=== PATIENT | male | born 2005 | race Caucasian/White ===

== ENCOUNTER 2025-02-26 17:12 | Emergency (ER) | payer MEDICAID, SELFPAY ==
--- NOTE | ~2025-02-26 | XR_ITS ---
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 Congenital shortening of the 5th middle and distal phalanges. There is focal soft tissue swelling of the 3rd digit, may reflect a component of cellulitis. There appears to be incomplete segmentation of the soft tissue webspaces between the 3rd and 4th and 4th and 5th digits. 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 Correlation clinically is advised. No acute fracture. No significant loss of joint space or osteophytes. No erosions. No radiopaque foreign body. IMPRESSION: Congenital anomalies with cellulitis described. This document has been electronically signed by: Hernan Amaya MD on 02/26/2025 18:51:45
[2025-02-26 17:53] VITALS: BP 150/75; PULSE 82; RESP 16; TEMP 36.7; O2SAT 98; BMI 28.8
--- NOTE | 2025-02-26 17:56 | ED.UPPEXIN ---
HPI - Extremity Injury (Upper) General Chief Complaint: General Medical Stated Complaint: Finger swelling/?Infection Time Seen by Provider: 02/26/25 20:50 Related Data Allergies Allergy/AdvReac Type Severity Reaction Status Date / Time No Known Allergies Allergy Verified 02/27/25 11:52 [facility] Social History Social History Advance Directives: No Advance Directives Information Provided: No Do you have a plan to hurt others: No Plan Physical Exam Vital Signs: Vital Signs: Last Vital Signs Temp 98.0 F 02/26/25 17:53 Pulse 82 02/26/25 17:53 Resp 16 02/26/25 17:53 BP 150/75 H 02/26/25 17:53 Pulse Ox 98 02/26/25 17:53 O2 Del Method Room Air 02/26/25 17:53 BMI result Body Mass Index 28.8 Course Course Course Narrative: This is an RME: Additional HPI, ROS, PE not included below will be deferred to primary provider. RME assessment and note performed by: Tali Garcia PA-C This is a 19-year-old male who presents emergency department with concerns of increased pain to his left hand. Patient with notable congenital deformity which he has had a . He states that there was a lump on his hand that he tried to remove with a string. He reports that he has had increased pain and swelling. Plan: Labs, x-ray, further ER evaluation needed. Reevaluation(s) Reevaluation #1: Patient left without completing treatment. Medical Decision Making Lab Data 02/26/25 19:20 02/26/25 19:20 Labs: Lab Results 02/26/25 Range/Units 19:20 WBC 7.2 (4.8-10.8) X10*3/uL RBC 4.64 (4.60-5.80) X10*6/uL Hgb 13.7 L (14.0-18.0) g/dl Hct 38.9 L (42.0-52.0) % MCV 83.8 (80.0-98.0) fL MCH 29.5 (27.0-33.0) pg MCHC 35.2 (31.0-36.0) g/dl RDW 13.3 (11.0-16.0) % Plt Count 157 L (160-400) X10*3/uL MPV 12.5 H (9.4-12.4) fL Immature Gran % (Auto) 0.4 (0.0-0.4) % Neut % (Auto) 56.4 (45-73) % Lymph % (Auto) 34.0 (20-40) % [place] % (Auto) 5.7 (2-11) % Eos % (Auto) 2.5 (0-4) % Baso % (Auto) 1.0 (0-2) % Lymph # (Auto) 2.5 (1.2-4.9) X10*3/uL [place] # (Auto) 0.4 (0.1-1.2) X10*3/uL Eos # (Auto) 0.2 (0.0-0.4) X10*3/uL Baso # (Auto) 0.1 (0.0-0.2) X10*3/uL Abs Immat Gran (auto) 0.03 (0.00-0.03) X10*3/uL Absolute Neuts (auto) 4.1 (2.0-8.3) x10*3/uL Absolute Nucleated RBC 0.000 (0.0-0.012) X10*3/uL Nucleated RBC % (auto) 0.0 (0.0-0.2) /100WBC ESR 7 (0-15) MM/HR Sodium 142 (135-145) mmol/L Potassium 3.6 (3.3-5.1) mmol/L Chloride 106 (96-108) mmol/L Carbon Dioxide 26 (22-29) mmol/L Anion Gap 14 (12-20) BUN 10 (9-16) mg/dL Creatinine 0.70 (0.5-1.4) mg/dL Estim Creat Clear Calc 172.2 Estimated GFR > 60 Random Glucose 111 (60-115) mg/dL Calcium 9.6 (8.4-10.2) mg/dL Total Bilirubin 0.2 (0.0-1.0) mg/dL Direct Bilirubin < 0.2 (0.0-0.5) mg/dL AST 78 H (5-37) U/L ALT 220 H (0-40) U/L Alkaline Phosphatase 159 H (39-117) U/L C-Reactive Protein < 0.10 (< or = 0.50) mg/dL Total Protein 7.7 (6.5-8.0) g/dL Albumin 4.9 (3.5-5.0) g/dL Discharge Plan 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
[2025-02-26 19:24] LABS: MANUAL DIFF FLAG NO
[2025-02-26 19:38] LABS: Hematocrit 38.9 % (42.0-52.0); Hemoglobin 13.7 g/dl (14.0-18.0); Imm Gran Abs Auto 0.03 X10*3/uL (0.00-0.03); Imm Gran Pct Auto 0.4 % (0.0-0.4); Lymphocytes Absolute Auto 2.5 X10*3/uL (1.2-4.9); Mean Corpuscular HGB Conc 35.2 g/dl (31.0-36.0); Mean Corpuscular Hemoglobin 29.5 pg (27.0-33.0); Mean Corpuscular Volume 83.8 fL (80.0-98.0); NRBC Abs Auto 0.000 X10*3/uL (0.0-0.012); NRBC Pct Auto 0.0 /100WBC (0.0-0.2); Platelet Count 157 X10*3/uL (160-400); Red Blood Count 4.64 X10*6/uL (4.60-5.80); White Blood Count 7.2 X10*3/uL (4.8-10.8)
[2025-02-26 19:39] LABS: Alanine Aminotransferase 220 U/L (0-40); Albumin Level 4.9 g/dL (3.5-5.0); Alkaline Phosphatase 159 U/L (39-117); Anion Gap 14 (12-20); Aspartate Amino Transferase 78 U/L (5-37); Blood Urea Nitrogen 10 mg/dL (9-16); Calcium 9.6 mg/dL (8.4-10.2); Carbon Dioxide 26 mmol/L (22-29); Chloride 106 mmol/L (96-108); Creatinine Clr Calc Pharmacy 172.2; Estimated Glomerular Filt Rate > 60; Potassium 3.6 mmol/L (3.3-5.1); Sodium 142 mmol/L (135-145); Total Protein 7.7 g/dL (6.5-8.0)
== END 2025-02-26 21:34 | disposition left against medical advice (07) ==
PROVIDERS: Physician Assistant Medical; Emergency Provider Emergency Medicine
DX: Q74.0 Other congenital malformations of upper limb(s), including shoulder girdle (principal); L03.012 Cellulitis of left finger; R60.0 Localized edema; Z53.29 Procedure and treatment not carried out because of patient's decision for other reasons
CPT/HCPCS: 36415; 73130; 80048; 80076; 85025; 85652; 86140; 99281; 99283

== ENCOUNTER → 2025-02-26 17:55 | Outpatient (BNV) | payer SELFPAY | PROVIDERS: Visit Provider Radiology Diagnostic Radiology | DX: Q68.1 Congenital deformity of finger(s) and hand (principal); L03.114 Cellulitis of left upper limb | CPT/HCPCS: 73130 ==

== ENCOUNTER 2025-02-27 11:23 | Emergency (ER) | payer MEDICAID, OTHER, SELFPAY ==
[2025-02-27 11:45] VITALS: BP 156/71; PULSE 89; RESP 16; TEMP 36.3; O2SAT 98; BMI 28.2
--- NOTE | 2025-02-27 11:45 | ED.UPPEXIN ---
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 He states that a string accidentally wrapped around his left 4th digit while he was in bed. States this was wrapped for approximately 5 hours before he was able to remove the string. Reports swelling/pain to the area. No sensation disturbances. He presents today requesting to have his digit removed . Related Data Home Medications ?Medication ?Instructions ?Recorded ?Confirmed No Known Home Meds 03/13/25 Allergies Allergy/AdvReac Type Severity Reaction Status Date / Time No Known Allergies Allergy Verified 03/13/25 08:44 Review of Systems Review of Systems: Yes all other systems are reviewed and are negative PMFSH Past Medical History Attestation statement: The following information was validated with the patient. 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 Skin: Warm, dry, intact. No rashes or lesions. Head: Normocephalic, atraumatic. EENT: Hearing is intact b/l. Conjunctiva clear. PERRLA. EOM intact. Moist mucous membranes.? Cardiac: Chest wall symmetric. RRR Lungs: Normal respiratory effort without accessory muscle use Ext: +see photo of left hand below. +syndactyly of the left 3rd/4th/5th digits. 3rd finger is missing the distal phalanx, and the 4th finger is missing the middle phalanx. +soft tissue mass attached to the distal dorsal top of the 4th finger, no bone involvement. approx 1.5cm in diameter, fairly mobile about the base Neuro: AOx3. Normal speech. Course Course Course Narrative: This is an RME: Additional HPI, ROS, PE not included below will be deferred to primary provider. RME assessment and note performed by: Tali Garcia PA-C This is a 19-year-old male who presents emergency department due to increased pain to his left hand. Patient with notable congenital deformity which he has had a . He states that there was a lump on his hand that he tried to remove with a string. He reports that he has had increased pain and swelling. He was seen here yesterday where labs were performed, as well as an x-ray however left without completing treatment. Upon review of his labs, he does have elevated liver transaminases, inflammatory markers within normal limits yesterday. No leukocytosis. Plan: Repeat labs Reevaluation(s) Reevaluation #1: Cbc without leukocytosis. No left shift. No anemia, h&h stable. Chemistry without acute electrolyte abnormality requiring intervention. No elliot. Transaminitis. No priors to compare to, other than labs obtained yesterday. Inflammatory markers are wnl. 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 shortening more so in the 4th digit. Congenital shortening of the 5th? middle and distal phalanges. There is focal soft tissue swelling of the? 3rd digit, may reflect a component of cellulitis. There appears to be? incomplete segmentation of the soft tissue webspaces between the 3rd and? 4th and 4th and 5th digits. 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 and syndactyly. Correlation clinically is advised. No acute fracture. No significant loss of joint space or osteophytes. No erosions. No radiopaque foreign body. IMPRESSION: Congenital anomalies with cellulitis described. Clinically, he does not have cellulitis. There is soft tissue swelling apparently where the string was constricting his soft tissue. he states his hand looks baseline, is unable to provide me with any photos of what the hand looked like prior to the string becoming constricted around his digit. During examination, patient states he wants the digit removed. He is declining any pain medication at this time, although endorsing 10/10 pain. He states ?are you going to remove it or not?, becoming increasingly agitated. There is no sign of tissue necrosis, NV compromise or threat to limb. He needs to follow up with hand surgery, outpatient, for elective amputation of the digit. I have provided him with a referral. Advised to call to establish care.? Medical Decision Making Medical Decision Making [facility] Narrative: 19-year-old male presents to the ED today for evaluation of left digit pain since yesterday. he is hypertensive, vitals are otherwise wnl. on exam, there is syndactyly of the left 3rd/4th/5th digits. 3rd finger is missing the distal phalanx, and the 4th finger is missing the middle phalanx. +soft tissue mass attached to the distal dorsal top of the 4th finger, no bone involvement. approx 1.5cm in diameter, fairly mobile about the base Plan to review labs/imaging. Differential Diagnosis Differential Diagnoses: The differential diagnosis associated with the presentation includes as above. Admission/Observation not indicated. Lab Data [facility] Lab Attestation statement: I reviewed the patient's lab results. as above. 02/27/25 12:24 02/27/25 12:25 Labs: Lab Results 02/27/25 02/27/25 Range/Units 12:24 12:25 WBC 6.2 (4.8-10.8) X10*3/uL RBC 4.94 (4.60-5.80) X10*6/uL Hgb 14.5 (14.0-18.0) g/dl Hct 41.2 L (42.0-52.0) % MCV 83.4 (80.0-98.0) fL MCH 29.4 (27.0-33.0) pg MCHC 35.2 (31.0-36.0) g/dl RDW 13.6 (11.0-16.0) % Plt Count 164 (160-400) X10*3/uL MPV 12.6 H (9.4-12.4) fL Immature Gran % (Auto) 0.6 H (0.0-0.4) % Neut % (Auto) 59.6 (45-73) % Lymph % (Auto) 29.3 (20-40) % [place] % (Auto) 6.8 (2-11) % Eos % (Auto) 2.7 (0-4) % Baso % (Auto) 1.0 (0-2) % Lymph # (Auto) 1.8 (1.2-4.9) X10*3/uL [place] # (Auto) 0.4 (0.1-1.2) X10*3/uL Eos # (Auto) 0.2 (0.0-0.4) X10*3/uL Baso # (Auto) 0.1 (0.0-0.2) X10*3/uL Abs Immat Gran (auto) 0.04 H (0.00-0.03) X10*3/uL Absolute Neuts (auto) 3.7 (2.0-8.3) x10*3/uL Absolute Nucleated RBC 0.000 (0.0-0.012) X10*3/uL Nucleated RBC % (auto) 0.0 (0.0-0.2) /100WBC ESR 4 (0-15) MM/HR Sodium 141 (135-145) mmol/L Potassium 4.1 (3.3-5.1) mmol/L Chloride 104 (96-108) mmol/L Carbon Dioxide 29 (22-29) mmol/L Anion Gap 12 (12-20) BUN 11 (9-16) mg/dL Creatinine 0.84 (0.5-1.4) mg/dL Estim Creat Clear Calc 142.2 Estimated GFR > 60 Random Glucose 110 (60-115) mg/dL Calcium 9.8 (8.4-10.2) mg/dL Total Bilirubin 0.5 (0.0-1.0) mg/dL Direct Bilirubin 0.2 (0.0-0.5) mg/dL AST 120 H (5-37) U/L ALT 256 H (0-40) U/L Alkaline Phosphatase 156 H (39-117) U/L C-Reactive Protein 0.11 (< or = 0.50) mg/dL Total Protein 8.0 (6.5-8.0) g/dL Albumin 5.1 H (3.5-5.0) g/dL Independent Interpretation I performed an independent interpretation of an: Plain X-Ray Interpretation: xr left hand without acute fracture Radiology Impression Discussion of test interpretation with radiology: I have reviewed the radiologist's reading. 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 shortening more so in the 4th digit. Congenital shortening of the 5th? middle and distal phalanges. There is focal soft tissue swelling of the? 3rd digit, may reflect a component of cellulitis. There appears to be? incomplete segmentation of the soft tissue webspaces between the 3rd and? 4th and 4th and 5th digits. 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 and syndactyly. Correlation clinically is advised. No acute fracture. No significant loss of joint space or osteophytes. No erosions. No radiopaque foreign body. IMPRESSION: Congenital anomalies with cellulitis described. 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 You state that this is unchanged from your congenital abnormality and are requesting that the area be removed. This is not something that we perform in the ED. I am referring you to our hand surgeon, Dr. Lopez, who may be able to discuss surgical options with you. You may take tylenol/motrin at home as needed. Return with any new or worsening symptoms. In the case of an emergency call 911. Prescriptions: No Action No Known Home Meds Referrals: Physician,None [Primary Care Provider, Medical] Monica Lopez MD [Physician, Hand Surgery] Interventions: ED Discharge Assessment Last Done: 02/27/25 15:31 Discharge Date/Time: 02/27/25 15:32 Print Language: Palauan
[2025-02-27 12:30] LABS: MANUAL DIFF FLAG NO
[2025-02-27 12:32] LABS: Hematocrit 41.2 % (42.0-52.0); Hemoglobin 14.5 g/dl (14.0-18.0); Imm Gran Abs Auto 0.04 X10*3/uL (0.00-0.03); Imm Gran Pct Auto 0.6 % (0.0-0.4); Lymphocytes Absolute Auto 1.8 X10*3/uL (1.2-4.9); Mean Corpuscular HGB Conc 35.2 g/dl (31.0-36.0); Mean Corpuscular Hemoglobin 29.4 pg (27.0-33.0); Mean Corpuscular Volume 83.4 fL (80.0-98.0); NRBC Abs Auto 0.000 X10*3/uL (0.0-0.012); NRBC Pct Auto 0.0 /100WBC (0.0-0.2); Platelet Count 164 X10*3/uL (160-400); Red Blood Count 4.94 X10*6/uL (4.60-5.80); White Blood Count 6.2 X10*3/uL (4.8-10.8)
[2025-02-27 12:45] LABS: Alanine Aminotransferase 256 U/L (0-40); Albumin Level 5.1 g/dL (3.5-5.0); Alkaline Phosphatase 156 U/L (39-117); Anion Gap 12 (12-20); Aspartate Amino Transferase 120 U/L (5-37); Blood Urea Nitrogen 11 mg/dL (9-16); Calcium 9.8 mg/dL (8.4-10.2); Carbon Dioxide 29 mmol/L (22-29); Chloride 104 mmol/L (96-108); Creatinine Clr Calc Pharmacy 142.2; Estimated Glomerular Filt Rate > 60; Potassium 4.1 mmol/L (3.3-5.1); Sodium 141 mmol/L (135-145); Total Protein 8.0 g/dL (6.5-8.0)
[2025-02-27 14:11] VITALS: BP 123/78; PULSE 87; RESP 16; O2SAT 99
[2025-02-27 15:31] VITALS: BP 123/78; PULSE 87; RESP 16; TEMP 36.6; O2SAT 99
== END 2025-02-27 15:32 | disposition home or self-care (01) ==
PROVIDERS: Physician Assistant Medical; Emergency Provider Emergency Medicine
DX: M20.002 Unspecified deformity of left finger(s) (principal); M79.645 Pain in left finger(s)
CPT/HCPCS: 36415; 80048; 80076; 85025; 85652; 86140; 99283

== ENCOUNTER 2025-03-13 08:35 | Outpatient (AMB) | payer SELFPAY ==
[2025-03-13 08:42] VITALS: BMI 29.6
--- NOTE | 2025-03-13 08:42 | MHC.OFFVIS ---
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 States on 02/26/25 a string accidentally wrapped around his fourth digit while he was in bed. States it was wrapped for about 5 hours. Experienced swelling and pain, but did not lose sensation. He was seen at [facility] ED on 02/26/25 where labs were performed, as well as an x-ray however patient left without completing treatment. As per ED notes, labs were done and showed elevated liver transaminases, inflammatory markers within normal limits. He was referred to be evaluated with hand surgeon Dr. Lopez. Today patient states he has no pain or dicomfort. 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 He says on 02/26/25 he had a loose string from his shirt that wrapped around his ring finger for ~5 hours. He denies losing any sensation. He was seen in the ED but left without treatment. He presents today denies any pain or swelling in his ring finger. He also says his sensation is normal. He says when he went to the ED he had a swollen lump on his ring finger, which developed after removing the string from his finger. He complains of a soft tissue mass on the dorsal distal aspect of his left ring finger that he would like to have removed. He has congenital defects of his bilateral hands. Syndactyly of the left middle, ring, and small fingers, and syndactyly of the right index & middle fingers. He says he cut the tissue between the middle & ring fingers of his right hand in the past, just distal to the PIP joint, and would have done the same to his left hand if he was able to. 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 Review of Systems Const All systems reviewed & are unremarkable except as noted in HPI and below Physical Exam Vital Signs: BMI result Body Mass Index 29.6 Const General: cooperative, healthy appearing and no acute distress Orientation/consciousness: patient oriented x3 HEENT Head: Yes normocephalic and Yes atraumatic Eyes EOM: EOMs intact bilaterally Resp Effort & Inspection: normal respiratory effort and able to speak in complete sentences Cardio Jugular venous distension: no JVD Skin General skin exam: turgor normal Rashes: no rashes Neuro General: patient oriented x3 Extrem Other: Evaluation of Left Upper Extremity: The patient is alert, oriented, and in no acute distress Neuro: Median, Ulnar, Radial nerves motor and sensory intact and sensation is normal to the tips of all digits Vascular: Cap refill brisk ROM: General: No Ecchymosis. No Erythema or evidence of infection. He has syndactyly of the left middle, ring, and small fingers. The middle finger is missing the distal phalanx, and the ring finger is missing the middle phalanx. The index finger is independent There is a mass attached to the distal dorsal top of the ring finger. This appears to involve skin and soft tissue but no bone, ~1.5cm in diameter, fairly mobile about the base. This appears to be a spherical soft tissue portion of his ring finger that had a constriction band around it. Syndactyly of the right index & middle fingers, with attenuation of these digits. There is also shortening of the ring finger The congenital hand deformities on both hands could have been caused by an amniotic band syndrome. He denies having similar issues in his feet or elsewhere. Radiographs: 3 views of the left hand from 02/26/25 were reviewed by me today in clinic. They show syndactyly of the middle, ring, and small fingers. The middle finger is missing the distal phalanx, and the ring finger is missing the middle phalanx. 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 Left ring finger mass Likely secondary to amniotic band constriction Measuring ~1.5cm in diameter I educated him about this condition I discussed operative and non-operative treatment options The patient would like to proceed with surgery The risks and benefits of operative treatment were discussed with the patient and the patient wishes to proceed with surgery. These risks include, but are not limited to risk of damage to blood vessels, nerves, tendons, infection, recurrence, incomplete relief of preoperative symptoms, persistent pain, possible need for further surgery and the risks associated with regional blocks and anesthesia. The plan is to take the patient to the operating room sometime in the next few weeks for the following procedures: 1. Left ring finger partial amputation, under local anesthesia All of the preoperative paperwork including the consent was reviewed today. All the patient's questions were answered. The patient understands that they will be contacted by our oral surgery physician soon to schedule this procedure He denies Diabetes, blood thinners, asthma, heart, lung, kidney issues 2. Left hand syndactyly Of the middle, ring, and small fingers. The middle finger is missing the distal phalanx, and the ring finger is missing the middle phalanx. The index finger is independent. Most likely secondary to amniotic band syndrome 3. Right hand Syndactyly Of the index & middle fingers, with attenuation of these digits. There is also shortening of the ring finger. Most likely secondary to amniotic band syndrome I educated him about this condition I discussed possible referral to a hand surgeon who more commonly treats these congenital hand abnormalities. This may be somewhat difficult, as he has the type of [facility] it will pay the hospital but apparently not the physicians who care for him. I am still putting him on the OR schedule. Please note that greater than 40 minutes was spent with this patient going over the history, evaluating the patient and radiographs, formulating possible treatment options, discussing them with the patient, and documenting the visit. Scribed for Monica Lopez MD by Paul Crisostomo, medical transcription editor, on 03/13/25 at 9:15 AM, EST. 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
== END 2025-03-13 09:38 | disposition home or self-care (01) ==
LOC: HO.HOS 08:35
PROVIDERS: Visit Provider Orthopaedic Surgery
DX: Q74.0 Other congenital malformations of upper limb(s), including shoulder girdle (principal); Q70.9 Syndactyly, unspecified
CPT/HCPCS: 99204

== ENCOUNTER → 2025-03-13 08:35 | Outpatient (BNVA) | payer MEDICAID, OTHER, SELFPAY | PROVIDERS: Visit Provider Orthopaedic Surgery | DX: Q74.0 Other congenital malformations of upper limb(s), including shoulder girdle (principal) | CPT/HCPCS: 99202 ==

== ENCOUNTER 2025-04-15 09:48 | Day surgery (SDC) | payer MEDICAID, OTHER, SELFPAY ==
--- NOTE | 2025-04-15 09:54 | MHC.SHP ---
Pre-Procedural Eval Section A - 24 Hr Update-Section A only Date of Service: 04/15/25 The patient is an INPATIENT: No Changes since office visit: No Cold of Flu in the past 2 weeks, No New Medical Problems, No Changes in Medication and No Patient answered all questions The patient has been examined within 24 hours of the surgical procedure. The History & Physical has been completed within 30 days and I have reviewed it.: Yes Section B - Complete if H&P > 30 days Chief Complaint: Other congenital malformations of upper limb(s), l Allergies: Allergies Allergy/AdvReac Type Severity Reaction Status Date / Time No Known Allergies Allergy Verified 03/13/25 08:44 Exam Exam Comment: Patient with brachy syndactyly of the left hand, possibly from amniotic band syndrome. Patient with nonfunctional distal aspect of the left ring finger that is adversely affecting use of the hand. We will perform a partial amputation of the left ring finger to remove this appendage. He also has a distal syndactyly the separation of the digit more proximally, and then a more proximal syndactyly. We are going to also perform a separation of the syndactyly at the distal aspect between the ring and middle fingers under local anesthesia at the same time. Plan I have reviewed the history and physical and performed a pertinent physical examination on my patient. No changes have occurred unless specified. Assessment and plan: 1. Left hand for brachy syndactyly, with non function of the distal aspect of the ring finger adversely affecting hand function and a small bridge of distal syndactyly. Patient with brachy syndactyly of the left hand, possibly from amniotic band syndrome.? Patient with nonfunctional distal aspect of the left ring finger that is adversely affecting use of the hand.? We will perform a partial amputation of the left ring finger to remove this appendage.? He also has a distal syndactyly the separation of the digit more proximally, and then a more proximal syndactyly.? We are going to also perform a separation of the syndactyly at the distal aspect between the ring and middle fingers under local anesthesia at the same time. The risks and benefits of operative treatment were discussed with the patient and the patient wishes to proceed with surgery. These risks include, but are not limited to risk of damage to blood vessels, nerves, tendons, infection, recurrence, incomplete relief of preoperative symptoms, persistent pain, possible need for further surgery and the risks associated with regional blocks and anesthesia. The plan is to take the patient to the operating room today for the following procedures: 1. Left ring finger partial amputation 2. Partial Separation of syndactyly between the distal aspect of the ring and middle fingers All of the preoperative paperwork including the consent was filled out today. All the patient's questions were answered. Time Spent With Patient Time: Total time managing care of this patient today ____ minutes.
--- NOTE | 2025-04-15 09:55 | W.PM.OPN ---
Operative Note Operative Note Date of Service: 04/15/25 Narrative: Operative Note Preop diagnosis: 1. 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 Left ring finger partial amputation of distal part of digit affected by constriction band 2. Partial takedown of the syndactyly between the left ring finger of the left middle finger, and repair of skin defects Surgeon: Monica Lopez MD Elevator Constructor Hydraulic: None Anesthesia: digital block using 1% lidocaine with epinephrine Findings: Left ring finger nonfunctional aspect of distal aspect of the digits secondary to amniotic band syndrome . Distal area of syndactyly measuring approximately 1 cm in length separate it from proximal area of syndactyly by a proximally 2 cm. Improve active motion of the left middle finger following release of the distal syndactyly, and removal of the nonfunctional distal aspect of the ring finger. 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 . The risks and benefits of operative treatment including but not limited to risk of damage to blood vessels, nerves, tendons, infection, persistent pain, persistent symptoms, recurrence or possible need for additional surgery were discussed with the patient and the patient wishes to proceed with surgery. Procedure: Once consent was obtained a digital block was performed in the preop area using a combination of 1% lidocaine with epinephrine. The patient was then brought back to the operating suite and placed on the operative table in supine position. The left upper extremity was prepped and draped in a standard surgical fashion. Once assured that we had a good block, I made a circumferential incision in the area of the amniotic band at the base of the pedunculated portion of the distal aspect of the left ring finger. I then this distal portion from the patient and was placed on the back table to be sent for histopathology. The opening from the stalk was only perhaps 4 mm in diameter. This allowed improved visualization of the distal syndactyly region, which measured approximately 1 cm in length. I then turned my attention to take down of the distal aspect of the syndactyly between the left middle and ring fingers. I began the incision dorsally through the skin to the subcutaneous tissues and extended this incision circumferentially around the syndactyly area to the volar aspect of the finger. The deeper syndactyly tissue was then also incised using a 15. Blade. This then allowed separation of the middle and ring fingers from the PIP joint distally. With the wounds on either side of the syndactyly measured about 1 cm in length by perhaps 8 mm in width. He had significantly improved active range of motion of the left middle finger following release of this portion of the syndactyly. Once satisfied with left ring finger partial amputation and takedown of the distal syndactyly between the left ring and middle fingers the wounds were copiously irrigated with normal saline and hemostasis was obtained with a brief period of local pressure. The skin edges were reapproximated with some 5.0 nylon suture material and a sterile dressing was applied. The patient appears to have tolerated the procedure well and with no complications. All digits were well vascularized at the conclusion of the case.
[2025-04-15 11:27] VITALS: BP 128/75; PULSE 80; RESP 16; TEMP 36.4; O2SAT 99; BMI 30.7
[2025-04-15 13:34] VITALS: BP 135/94; PULSE 86; RESP 16; TEMP 36.3; O2SAT 100
== END 2025-04-15 13:53 | disposition home or self-care (01) ==
PROVIDERS: Visit Provider Orthopaedic Surgery
PROC: (CPT 26951; principal; 2025-04-15 12:10)
DX: Q70.9 Syndactyly, unspecified (principal)
CPT/HCPCS: 26951; 26560; 88305; 88311; J0165; J2003

== ENCOUNTER → 2025-04-15 09:48 | Outpatient (BNV) | payer MEDICAID, SELFPAY | PROVIDERS: Visit Provider Orthopaedic Surgery | DX: S68.125A Partial traumatic metacarpophalangeal amputation of left ring finger, initial encounter (principal); Q70.12 Webbed fingers, left hand | CPT/HCPCS: 26560; 26951 ==

== ENCOUNTER 2025-04-24 07:36 | Outpatient (REF) | payer MEDICAID, OTHER, SELFPAY ==
--- NOTE | ~2025-04-24 | XR_ITS ---
EXAMINATION: XR HAND, LEFT CLINICAL INFORMATION: M79.642 - Pain in left hand COMPARISON: X-ray 02/26/2025 TECHNIQUE: PA, lateral, and oblique views of the left hand. FINDINGS: Third digit: Proximal and middle phalanx is present. There is a small ossification distally, could represent a attenuated distal phalanx, which is not clearly visualized on the prior study. No gross destructive changes are seen. Soft tissue swelling present, which could represent cellulitis. No subcutaneous emphysema is seen. 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 The remainder the bones, no acute fracture or dislocation. Sclerosis in the distal third of the scaphoid, unchanged. No significant joint space loss osteophytes. No radiopaque foreign body. XR/XR hand LT min 3V IMPRESSION: Third digit: Soft tissue swelling, which could represent cellulitis. No soft tissue emphysema or radiopaque foreign body seen. Small ossification distal to the third middle phalanx, could represent an attenuated distal phalanx, of indeterminate etiology. No gross destructive changes seen.. Clinically correlate. Electronically signed by: Keith Samuel MD 04/24/2025 10:45 AM JAKE
== END 2025-04-24 07:37 | disposition home or self-care (01) ==
LOC: HO.HOSX 07:36
PROVIDERS: Visit Provider Orthopaedic Surgery
DX: M79.642 Pain in left hand (principal); Q74.0 Other congenital malformations of upper limb(s), including shoulder girdle; D21.12 Benign neoplasm of connective and other soft tissue of left upper limb, including shoulder
CPT/HCPCS: 73130; 99212

== ENCOUNTER 2025-04-24 09:30 | Outpatient (AMB) | payer MEDICAID, SELFPAY ==
[2025-04-24 09:46] VITALS: BMI 31.6
--- NOTE | 2025-04-24 09:46 | A.OFFVIS_ITS ---
Vital Signs 04/24/25 09:46 Height 5 ft 4 in Weight 184 lb BMI 31.6 Intake Visit Reasons: PO LT RF partial amp 04/15/25 AR Intake Note: Sohail 19 yr old left hand dominant male presents today for his P/O visit for his left right finger partial amputation. Dressing removed in office. States he has no pain, numbness or tingling. Allergies No Known Allergies Allergy (Verified 04/24/25 09:52) HPI HPI PO LT RF partial amp 04/15/25 AR: Details: Sohail is a 19 year old left hand dominant Sinhala speaking man who returns S/P left ring finger mass excision & partial takedown of the syndactyly between the left ring finger of the left middle finger, and repair of skin defects, DOS: 04/15/25 He says he is doing well and he is happy with the improved use of his middle finger. 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 Syndactyly of the left middle, ring, and small fingers, and syndactyly of the right index & middle fingers. He says he cut the tissue between the middle & ring fingers of his right hand in the past, just distal to the PIP joint, and would have done the same to his left hand if he was able to. 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 Review of Systems Const All systems reviewed & are unremarkable except as noted in HPI and below Physical Exam Vital Signs: BMI result Body Mass Index 31.6 Const General: cooperative, healthy appearing and no acute distress Orientation/consciousness: patient oriented x3 HEENT Head: Yes normocephalic and Yes atraumatic Eyes EOM: EOMs intact bilaterally Resp Effort & Inspection: normal respiratory effort and able to speak in complete sentences Cardio Jugular venous distension: no JVD Skin General skin exam: turgor normal Rashes: no rashes Neuro General: patient oriented x3 Extrem Other: The patient was alert oriented and in no acute distress The incisions are healing well with no erythema drainage or evidence of infection. Sutures removed and Steri-Strips applied He has syndactyly of the left middle, ring, and small fingers. The middle finger is missing the distal phalanx, and the ring finger is missing the middle phalanx. The index finger is independent Syndactyly of the right index & middle fingers, with attenuation of these digits. There is also shortening of the ring finger The congenital hand deformities on both hands could have been caused by an amniotic band syndrome. He denies having similar issues in his feet or elsewhere. Flexion and extension similar to before surgery. More independence of the left middle finger with a separation of the middle finger from the distal aspect of the ring finger. Again he still has a syndactyly proximal to the PIP joint Sensation is intact Cap refill is brisk Pathology 04/15/25 Diagnosis Labeled left partial ring finger : -Polypoid portion of benign skin and underlying soft tissue with features suggesting soft fibroma. -No bone or nail present. 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 Left ring finger Fibroma, S/P partial amputation of distal part of digit affected by constriction band 2. Left hand syndactyly Of the middle, ring, and small fingers. The middle finger is missing the distal phalanx, and the ring finger is missing the middle phalanx. The index finger is independent. Most likely secondary to amniotic band syndrome S/P Partial takedown of the syndactyly between the left ring finger of the left middle finger, and repair of skin defects DOS: 04/15/25 The patient appears to be doing well post-operatively I educated him about the post-operative course I explained the signs and symptoms of infection, if the patient develops any new or worsening erythema, drainage, pain, or warmth they should contact the clinic or attend the ED. I discussed activity modifications, he is to lift nothing heavier than a cellphone for the next 2 weeks. They should also avoid any heavy impact activities, falls, or sports activities for the next 4 weeks He will perform gentle ROM exercises at home He should avoid any underwater activities for the next 5 days He should gently massage about the incision site to reduce the risk of hypersensitivity He was given a note to return to work with a 5lb weight limit, keeping his LUE clean. He can return to full duty in 2 weeks. He can follow up prn 3. Right hand Syndactyly Of the index & middle fingers, with attenuation of these digits. There is also shortening of the ring finger. Most likely secondary to amniotic band syndrome I educated him about this condition I discussed possible referral to a hand surgeon who more commonly treats these congenital hand abnormalities. This may be somewhat difficult, as he has the type of [employer] it will pay the hospital but apparently not the physicians who care for him. Scribed for Monica Lopez MD by Paul Crisostomo, clinical laboratory medical director, on 04/24/25 at 10:15 AM, EST. 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
== END 2025-04-24 10:56 | disposition home or self-care (01) ==
LOC: HO.HOS 09:31
PROVIDERS: Visit Provider Orthopaedic Surgery
DX: Q74.0 Other congenital malformations of upper limb(s), including shoulder girdle (principal); Q70.9 Syndactyly, unspecified; D21.12 Benign neoplasm of connective and other soft tissue of left upper limb, including shoulder
CPT/HCPCS: 99024

== ENCOUNTER → 2025-04-24 09:32 | Outpatient (BNV) | payer MEDICAID, SELFPAY | PROVIDERS: Visit Provider Radiology Diagnostic Ultrasound | DX: M79.89 Other specified soft tissue disorders (principal) | CPT/HCPCS: 73130 ==